=== PATIENT | female | born 1980 | race Caucasian/White ===

== ENCOUNTER 2017-11-11 01:46 | Emergency (ER) | payer OTHER ==
[~2017-11-11] VITALS: Ht 170.2 cm; Wt 113.5 kg
[~2017-11-11 01:46] MED LIST: MTH10 PO
[2017-11-11 01:49] VITALS: TEMP 36.6; Ht 170.2 cm; Wt 113.5 kg
[2017-11-11] MEDS ORDERED: BUSP-8 PO (02:43)
[2017-11-11] MEDS ORDERED: HYDR-5688 PO (02:45)
[2017-11-11] MEDS ORDERED: LORA-741 PO (02:46)
[2017-11-11] MEDS ORDERED: ESCI1TAB10 PO (02:47)
[2017-11-11] MEDS ORDERED: VST25HP PO (02:52)
[2017-11-11] MEDS ORDERED: CLON0.3T PO (02:54)
[2017-11-11] MEDS ORDERED: DIPH-437 PO (02:55)
[2017-11-11 03:02] VITALS: BP 141/94; PULSE 99; O2SAT 97
--- NOTE | 2017-11-11 07:00 | DIAGNOSTIC IMAGING REPORT ---
R ANKLE MIN 3 VIEWS ROUTINE CLINICAL HISTORY: Right ankle pain area trauma. COMPARISON: None. DISCUSSION: No fractures or dislocations are visualized. There is a tiny Achilles insertional spur. IMPRESSION: No fractures or dislocations identified. Electronically signed by: Dima Garcia M.D. 11/11/2017 6:59 AM Dictated Date/Time: 11/11/2017 6:58 AM
--- NOTE | 2017-11-12 07:09 | EMERGENCY ROOM VISIT NOTE ---
History First contact with patient: 01:54 Chief Complaint: ANKLE PAIN Stated Complaint: FELL ON RIGHT ANKLE-SEVERE PAIN History of Present Illness The patient is a 37 year old female who presents to the Emergency Room with complaints of right ankle pain after falling twice in the past 2 days. The patient states that she had 2 mechanical falls, the last of which was last evening, roughly 8 hours ago. The patient is primarily having pain along the outside of the right ankle. She does not have numbness or paresthesias. No pain of her knee or hip. The patient does not report previous injury to this ankle. The patient reports allergies to Toradol, tramadol, and Tylenol, but did take ibuprofen 800 mg at home without any improvement of symptoms. She rates her discomfort a 9/10. Review of Systems More than 10 systems were reviewed and otherwise negative with the exception of history of present illness. Past Medical/Surgical History Medical Problems: (1) Chronic neck pain (2) Methadone dependence (3) Neck strain Family History No pertinent chronic medical disease Social History Smoking Status: Current Every Day Smoker Marital Status: Housing Status: lives with significant other Occupation Status: unemployed Current/Historical Medications Scheduled Buspirone Hcl (Buspirone Hcl), 20 MG PO TID Clonidine Hcl (Catapres), 0.3 MG PO BID Escitalopram Oxalate (Lexapro), 20 MG PO DAILY Scheduled PRN Acetaminophen/Diphenhydramine (Tylenol Pm), 2 TAB PO HS PRN for Sleep Hydrocodone/Acetaminophen 5MG/325MG ([place] 5MG/325MG), 1 TAB PO BID PRN for Pain Hydroxyzine HCl (Hydroxyzine Pamoate), 50 MG PO TID PRN for Anxiety Lorazepam (Ativan), 0.5 MG PO DAILY PRN for Anxiety Physical Exam Vital Signs Date Time Temp Pulse Resp B/P (MAP) Pulse Ox O2 Delivery O2 Flow Rate FiO2 11/11/17 03:02 99 16 141/94 97 11/11/17 01:49 36.6 105 16 142/88 100 Room Air Physical Exam VITALS: Vitals are noted on the nurse's note and reviewed by myself. Vital signs stable. GENERAL: Well-developed, well-nourished, white female, who is in no acute distress and resting comfortably. Patient is cooperative with the examination. HEAD: Normocephalic atraumatic. HEART: Regular rate and rhythm without murmurs gallops or rubs. LUNGS: Clear to auscultation bilaterally without wheezes, rales or rhonchi. No retractions or accessory muscle use. MUSCULOSKELETAL: There is mild edema appreciated throughout the right ankle along the lateral malleolus and anterior joint space. The patient is with full sensation and range of motion. Neurovascular status is intact. No deformity or erythema. The patient is able to ambulate without a limp. No tenderness of the knee or ligamentous laxity. NEURO: Patient was alert and oriented to person place and time. CN II through XII grossly intact. No focal neurological deficits. Deep tendon reflexes 2+ throughout. Medical Decision & Procedures ER Provider Diagnostic Interpretation: R ANKLE MIN 3 VIEWS ROUTINE CLINICAL HISTORY: Right ankle pain area trauma. COMPARISON: None. DISCUSSION: No fractures or dislocations are visualized. There is a tiny Achilles insertional spur. IMPRESSION: No fractures or dislocations identified. ED Course Physical exam and history were performed. Nursing notes, EMR, and Medication List were personally reviewed. Patient appears to have right ankle pain after falling twice in the past 2 days. On examination the patient does have some right-sided lateral tenderness and swelling. X-ray was performed and reviewed by myself and radiology as showing no acute fracture or dislocation. I discussed options of care with the patient, who continue to report high levels of pain in her ankle, and is requesting pain control. Review of her [place] drug monitoring profile shows the patient has filled 150 Vicodin and roughly the past 2 weeks. She did not disclose this to me at the time of initial evaluation, but admits to this upon questioning. The patient additionally has a past history of methadone dependence. Overall I do not feel comfortable providing the patient controlled substances, and based on her allergies she was given instructions to continue ibuprofen. The patient was given a splint and crutches. The patient lives in [place], and had to drive over an hour to get this facility past additional hospitals. We do not have distinct orthopedic contacts in that area, and I will give the patient information for local orthopedics for follow-up. The patient was otherwise invited back to the ER with any new, worsening, or concerning symptoms. The chart was completed utilizing [employer] Voice [employer]ognition Software. Grammatical errors, random word insertions, pronoun errors, and incomplete sentences are an occasional consequence of this system due to software limitations, ambient noise, and hardware issues. Any formal questions or concerns about the content, text, or information contained within the body of this dictation should be directly addressed to the provider for clarification. . Medical Decision Differential diagnosis includes, but is not limited to: Sprain, strain, fracture , dislocation, subluxation, contusion, and others Impression Primary Impression: Right ankle injury Departure Information Dispostion Home / Self-Care Condition GOOD Forms HOME CARE DOCUMENTATION FORM, IMPORTANT VISIT INFORMATION Patient Instructions [facility] Additional Instructions You were seen and evaluated today on an emergency basis only. This is not a substitute for, or an effort to provide, complete comprehensive medical care. It is not possible to recognize and treat all injuries or illnesses in a single emergency department visit. For this reason it is recommended that you followup with your primary care physician tomorrow for a recheck of your condition. We recommend that you follow with orthopedics next week for ongoing care. We do not have affiliations with orthopedics in [place]. We have provided you information for [facility], Dr. Caban's office, if you can not be seen closer to home. For baseline pain relief you may alternate ibuprofen and acetaminophen every 4 hours for pain control. Take 600 mg ibuprofen (Advil) and then 4 hours later take 1000 mg acetaminophen (Tylenol). Do not take more than 3000 mg acetaminophen in a single day. Use your gel ankle splint and crutches until cleared by orthopedics. You are welcome to return to the emergency department anytime with new, worsening, or concerning symptoms.
== END 2017-11-11 03:03 | disposition home or self-care (01) ==
LOC: C.EDB 01:48
DX: S99.911A Unspecified injury of right ankle, initial encounter (principal); W19.XXXA Unspecified fall, initial encounter; Y92.9 Unspecified place or not applicable; F17.210 Nicotine dependence, cigarettes, uncomplicated; Z79.899 Other long term (current) drug therapy